=== PATIENT | female | born 1975 | race Caucasian/White ===

== ENCOUNTER 2024-09-24 13:23 | Outpatient (AMB) | payer OTHER, SELFPAY ==
[2024-09-24 13:34] VITALS: BMI 39.6
--- NOTE | 2024-09-24 13:34 | A.SPINEOV_ITS ---
Vital Signs 09/24/24 13:34 Height 5 ft 5 in Weight 238 lb BMI 39.6 Intake Visit Reasons: Neck pain Intake Note: Ms. Delgado is here today c/o neck pain. 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 Over the years, she noticed this following symptom progression: Neck pain, numbness and clumsiness in her hands and incidental loss of muscular control of arms or a spastic gait. She remembered after mountain biking, that she had loss of control of her arms and a wide-based gait that resolved. At night she sleeps in a certain position supported by pillows to avoid neck pain and/or numbness in her arms. She denies electric shocks down the spine. There is intermittent numbness of the bilateral hands during cycling. Her hands also may get into temporary spasms. Sometimes she has pain on the dorsum of the bilateral forearms, where the right side is more affected than the left side. She denies urge incontinence. She was evaluated by Dr. Lozano at [facility] who recommended a 3 level C3-C7 anterior diskectomy and fusion. She tried physical therapy and chiropractic therapy in the past. She constantly adjust her life to alleviate the symptoms. PMH: Multiple foot surgeries, Sonny's disease migraines Medications: Levothyroxine, liothyronine, meloxicam, progressed to wrong, dextroamphetamine Allergies: NKDA Social history: . Nonsmoker Physical Exam: Pleasant female. Normal gait. Reflex pattern shows bilateral Babinski's and a on beat ankle clonus bilaterally. On the right side the triceps reflex is higher than the biceps reflex. Flexion at the wrist produces numbness in her fingers. Tinel is negative. Radiological Studies: MRI done at [facility] on 09/03/2024 shows moderate cervical degenerative disc disease C4-5 C5-6 and C6-7 with cervical spinal stenosis. There still spinal fluid around the spinal cord with the exception at C6-7 where I would classify the compression as severe. The C6-7 level also shows bilateral C7 nerve root compression where the right side is more affected than the left side. Impression/Plan: This patient is suffering from slowly progressive cervical myelopathy. Clinical exam points towards the C6-7 area which is also the most severe at the MRI with spinal cord compression and bilateral C7 nerve root compression. In addition, I also think she is suffering from carpal tunnel syndrome. We had an extensive discussion about neurological observation versus surgery and what type of surgery. We could do serial neurological exams, however, I am leaning more towards doing an anterior diskectomy and fusion C6-7 due to the severity of the spinal cord compression and the slow progression of her symptoms. I do not think the other levels require surgery at this time. 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 She will think about our conversation and make a decision between surgery or serial reassessments. Finally, I did review the note of Dr. Lozano from to 12/07/2018 and he did not find a clonus or Babinski's, indicating that her neurological exam has worsened over the years. Thank you for allowing me to participate in your patients care. total time spent was 60 minutes in counseling ,coordination of plan, personal review of imaging, surgical decision making and subsequent plan Carlos Alberto Tijerina MD, PhD Spine Fellowship Trained Neurosurgeon Director, [facility] Coding Level of Care Code New Pt Level 5 (43506) Diagnoses Cervical disc disorder with myelopathy of cervical region M50.00 Bilateral carpal tunnel syndrome G56.03
--- OUTSIDE RECORDS SUMMARY | 2024-09-24 15:01 | XMS_ITS | Continuity of Care Document ---
[facility] Address [address] [place] [address]- Care Team Providers Care Technical Project Coordinator Name Role Phone Jessica Jones MD Primary Care Physician [phone] Encounter [facility] Date(s): 08/20/24 - 09[facility]19/[facility] [address] [place] [address]- Encounter Type: Triage Allergies, Adverse Reactions, Alerts Substance Criticality Severity Reaction Reaction Severity Status Augmentin VOMITING Active Medications Adderall 15 mg oral tablet 1 tablet = 15 mg, By Mouth, Daily in AM, 0 Refills, Maintenance, 08/25/24 2:02:00 PM EST, Partial fill upon patient request if the prescription is for a schedule II opioid drug. Start Date: 08/25/24 Status: Ordered Repeat number: 1 baclofen/flurbiprofen/lidocaine topical Topically, 3 times a day, 0 Refills, Maintenance, 08/05/19 12:17:00 PM EST Start Date: 08/05/19 Status: Ordered Repeat number: 1 Sandy 0.1 mg/24 hours twice weekly transdermal film, extended release See Instructions, apply to skin twice weekly per africana studies professor's insturctions x 90 days., # 24 patch, 1 Refills, Maintenance, 09/01/24 7:58:00 PM EST, [facility] - [id number], Partial fill upon patient request if the prescription is for a schedule II opioid drug., apply to skin twice weekly per africana studies professor's insturctions x 90 days., 162.56, cm, 08/25/24 14:04:00 EST, Height Start Date: 09/01/24 Status: Ordered Quantity: 24.0 Unit: patch Repeat number: 2 Knee Support Maintenance, left xxl trupull, 08/06/19 9:13:00 AM EST, Compound Start Date: 08/06/19 Status: Ordered Repeat number: 1 Levothyroxine = 125 mcg, Daily, 0 Refills, Maintenance, 06/01/12 11:46:18 AM EST Start Date: 06/01/12 Status: Ordered Repeat number: 1 liothyronine 5 mcg oral tablet 1 tablet = 5 mcg, By Mouth, Daily, 0 Refills, Maintenance, 08/14/20 2:58:00 PM EST, Partial fill upon patient request if the prescription is for a schedule II opioid drug. Start Date: 08/14/20 Status: Ordered Repeat number: 1 meloxicam 10 mg oral capsule 1 capsule = 10 mg, By Mouth, Daily, # 90 capsule, 0 Refills, Maintenance, 08/25/24 2:03:00 PM EST, Capsule, Partial fill upon patient request if the prescription is for a schedule II opioid drug. Start Date: 08/25/24 Status: Ordered Quantity: 90.0 Unit: capsule Repeat number: 1 Micronized Testosterone 4mg/gram cream Micronized Testosterone 4mg/gram cream, See Instructions, # 30 Gm, Refills 1, Tot. Refills 1, Maintenance, Apply to rotating sites on skin once daily. Start with 1mg a day and increase by 1mg a week until clinical relief noted. Max 4mg/day (1gram) x 30 days, 09/17/24 4:52:00 PM EST, chronic low testosterone, Supply, 162.56, cm, 08/25/24 14:04:00 EST, Height Start Date: 09/17/24 Status: Ordered Quantity: 30.0 Unit: g Repeat number: 2 [place]-3 oral capsule 0 Refills, Maintenance, 08/14/20 2:57:00 PM EST, Partial fill upon patient request if the prescription is for a schedule II opioid drug. Start Date: 08/14/20 Status: Ordered Repeat number: 1 Prometrium 200 mg oral capsule = 200 mg, By Mouth, Daily at bedtime, for 90 days, # 90 capsule, 1 Refills, Acute 02/28/25 7:59:00 PM EDT, 09/01/24 7:59:00 PM EST, Capsule, [facility] [id number], Partial fill upon patient request if the prescription is for a schedule II opioid drug., 162.56, cm, 08/25/24 14:04:00 EST, Height Start Date: 09/01/24 Stop Date: 02/28/25 Status: Ordered Quantity: 90.0 Unit: capsule Repeat number: 2 Vitamin D3 By Mouth, 0 Refills, Maintenance, 01/12/16 10:19:38 AM EDT Start Date: 01/12/16 Status: Ordered Repeat number: 1 Problem List Condition Confirmation Course Effective Dates Status Health St atus Informant Hypothyroidism Confirmed Active Migraine Confirmed Active Nulliparous Confirmed Active Social History Social History Type Response Smoking Status Never smoker entered on: 09/06/14 Sex Female Sex Representation Female (finding) Patient Care team information Care Team Personnel Name: Jessica Jones MD Position: [facility] Physician - Primary Care Member Role: PCP Address: [address] [place] [address] Telecom: Name: Carina Busby DO Position: [facility] RADIATION OFFICER Member Role: Lifetime RADIATION OFFICER Physician Address: [address] [place] [address] Telecom: Care Team Related Persons Name: TOR CARTWRIGHT Insurance Providers Guarantor name: ROSEMARY CARTWRIGHT Health Plan Information #: 1 Payer: [employer] H[employer] Member Number: NA Policy Number: NA Group Number: NA
--- OUTSIDE RECORDS SUMMARY | 2024-09-24 15:01 | XMS_ITS | Continuity of Care Document ---
[facility] Organization [facility] Address [address] [place] [address]- Care Team Providers Care Pit Laborer Name Role Phone Jessica Jones MD Primary Care Physician Encounter [facility] Date(s): 08/18/24 - 09/17/24 [facility] [address] [place] [address]- Encounter Type: Triage Allergies, Adverse Reactions, Alerts [...] Instructions, apply to skin twice weekly per energy derivatives trader's insturctions x 90 days., # 24 patch, 1 Refills, Maintenance, 09/01/24 7:58:00 PM EST, [facility] - [id number], Partial fill upon patient request if the prescription is for a schedule II opioid drug., apply to skin twice weekly per energy derivatives trader's insturctions x 90 days., 162.56, cm, 08/25/24 [...] Quantity: 30.0 Unit: g Repeat number: 2 [place]-3 oral capsule 0 Refills, Maintenance, 08/14/20 2:57:00 PM EST, Partial fill upon patient request if the prescription is for a schedule II opioid drug. Start Date: 08/14/20 Status: Ordered Repeat number: 1 Prometrium 200 mg oral capsule = 200 mg, By Mouth, Daily at bedtime, for 90 days, # 90 capsule, 1 Refills, Acute 02/28/25 7:59:00 PM EDT, 09/01/24 7:59:00 PM EST, Capsule, [facility] [address], Partial fill upon patient request if the [...] Team Personnel Name: Jessica Jones MD Position: [facility] Physician - Primary Care Member Role: PCP Address: [address] [place] [address] Telecom: Name: Carina Busby DO Position: [facility] PASSENGER BARGE MASTER Member Role: Lifetime PASSENGER BARGE MASTER Physician Address: [address] [place] [address] Telecom: Care Team Related Persons Name: TOR CARTWRIGHT Insurance Providers Guarantor name: ROSEMARY CARTWRIGHT Health Plan Information #: 1 Payer: [employer] Member Number: NA Policy Number: NA Group Number: NA
--- OUTSIDE RECORDS SUMMARY | 2024-09-24 15:02 | XMS_ITS | Continuity of Care Document ---
Author Organization [facility] ter Address [address] [place] [address]- Care Team Providers Care Meat Inspector Name Role Phone Jessica Jones MD Primary Care Physician [phone] Encounter 09/03/24 - 09/04/[address] [address] Attending Physician: Not on Staff, Attending MD Referring Physician: Not on Staff, Referring MD Encounter Type: [facility] Allergies, Adverse Reactions, Alerts Substance Criticality Severity [...] Instructions, apply to skin twice weekly per roll tester's insturctions x 90 days., # 24 patch, 1 Refills, Maintenance, 09/01/24 7:58:00 PM EST, [facility] - [id number], Partial fill upon patient request if the prescription is for a schedule II opioid drug., apply to skin twice weekly per roll tester's insturctions x 90 days., 162.56, cm, 08/25/24 [...] Quantity: 90.0 Unit: capsule Repeat number: 1 [place]-3 oral capsule 0 Refills, Maintenance, 08/14/20 2:57:00 PM EST, Partial fill upon patient request if the prescription is for a schedule II opioid drug. Start Date: 08/14/20 Status: Ordered Repeat number: 1 Prometrium 200 mg oral capsule = 200 mg, By Mouth, Daily at bedtime, for 90 days, # 90 capsule, 1 Refills, Acute 02/28/25 7:59:00 PM EDT, 09/01/24 7:59:00 PM EST, Capsule, [facility] [address], Partial fill upon patient request if the [...] Team Personnel Name: Jessica Jones MD Position: [facility] Physician - Primary Care Member Role: PCP Address: [address] [place] [address] Telecom: Name: Carina Busby DO Position: [facility] CHAINER MD Member Role: Lifetime CHAINER Physician Address: [address] [place] [address] Telecom: Care Team Related Persons Name: TOR CARTWRIGHT Insurance Providers Guarantor name: ROSEMARY CARTWRIGHT [employer] Plan Information #: 1 Payer: [facility] HMO Member Number: NA Policy Number: NA Group Number: NA
== END 2024-09-24 14:25 | disposition home or self-care (01) ==
PROVIDERS: PCP Family Medicine; Referring Provider Family Medicine; Visit Provider Neurological Surgery
DX: M50.00 Cervical disc disorder with myelopathy, unspecified cervical region (principal); G56.03 Carpal tunnel syndrome, bilateral upper limbs
CPT/HCPCS: 99205

== ENCOUNTER → 2024-09-24 13:23 | Outpatient (BNVA) | payer OTHER, SELFPAY | PROVIDERS: PCP Family Medicine; Referring Provider Family Medicine; Visit Provider Neurological Surgery ==

== ENCOUNTER 2024-11-24 12:59 | Outpatient (AMB) | payer OTHER, SELFPAY ==
--- NOTE | 2024-11-24 13:00 | HO.SPINEOV ---
Intake Visit Reasons: Discuss surgery Intake Note: Ms. Delgado is here today to discuss surgery. Residential Program Manager Required: No Allergies acetaminophen [From Vicodin] Allergy (Verified 11/24/24 13:02) Hypotension amoxicillin [From Augmentin] Allergy (Verified 11/24/24 13:02) Nausea clavulanic acid [From Augmentin] Allergy (Verified 11/24/24 13:02) Nausea hydrocodone [From Vicodin] Allergy (Verified 11/24/24 13:02) Hypotension Assessment & Plan Assessment & Plan (1) Cervical disc disorder with myelopathy of cervical region: Code(s): M50.00 - Cervical disc disorder with myelopathy, unspecified cervical region Category: Medical Plan Mrs Delgado came into the office today to review her anticipated procedure anterior cervical diskectomy and fusion C6-7. Her symptoms have been progressing fairly rapidly with the pain and numbness down the arms and the numbness in the hands. All pertinent risks and benefits were discussed as well as postoperative care. Pt was given risk and benefits of surgery including but not limited to infection, hematoma , nerve injury,durotomy, weakness,bowel/bladder injury, persistent pain, dysphagia as well as the option to continue with conservative treatment and patient wishes to proceed with surgery. If she still has numbness after the surgery, we can move ahead with a carpal tunnel release. Total amount of time spent in this visit was 20 minutes in discussion of symptoms, cervical imaging results and subsequent plan of care Isidro Tijerina MD,PhD [facility] Coding Level of Care Code Est Pt Level 3 (96025) Diagnoses Cervical disc disorder with myelopathy of cervical region M50.00
--- OUTSIDE RECORDS SUMMARY | 2024-11-24 14:09 | XMS_ITS | Continuity of Care Document ---
Author Organization [facility] Address [address] [place] [address] Phone Care Team Providers Care Botany Professor Name Role Phone Phoenix Harris MD Unavailable Unavailable Allergies, Adverse Reactions, Alerts Substance Reaction Status Criticality Penicillins Active No Information Medications Medication Instructions Dosage Effective Dates (start - stop) Status Comments Bactrim DS 800 mg-160 mg tablet take 1 tablet by oral route every 12 hours 1.00 tablet - Active Procedures Procedure Date UA auto w/o micro Level 4- New Office Advance Directives Directive Yes / No Effective Date File Name No Information Encounters Encounter Description Practice Location Reason(s) For Visit Diagnoses Date Provider Providers Copied on Encounter [facility], [address] [place], [place], [id number] , [place] tel:[phone] [facility] [place] No Information 0 Kimberly Garibay. [address] [place] [address], [address], [address], [place]. tel:[phone] [facility], [address] [place] [address], [id number] , [place] tel:[phone] [facility] Mixed incontinence 0 Taras Graham. [address] [facility], [address], [place], [address], [place]. tel:[phone] [facility], [address] [place] [address], [id number] , [place] tel:[phone] [place] Office 11 No Information 0 Taras Graham. [address] [facility] [place], [facility] [address], [place], [address], [place]. tel:[phone] Level 4- New Office [facility], [address] [facility] [place], [place], [id number] , [place] tel: [phone] [place] [facility] 4 Incontinence (chief complaint) Mixed incontinencePel darcy and perineal painUTI Sep- 0 Taras Graham. [address] [facility] [place], [address], [place], [address], [place]. tel:[phone] Referring Provider: Santos Mustafa, [address] [place] [address], [address]. tel:[phone] Family History Family Member Type Diagnosis Age At Onset Mother Problem (finding) Urolithiasis Mother Problem (finding) Alzheimer's disease Sister Problem (finding) ADD/ADHD Sister Problem (finding) Urolithiasis Mother Problem (finding) Urinary tract infection s Mother Problem (finding) Cardiovascular disease Mother Problem (finding) High cholesterol Sister Problem (finding) Urinary tract infection s Sister Problem (finding) Cancer, unknown Mother Problem (finding) Migraines Mother Problem (finding) Cancer, unknown Father Problem (finding) Cancer, unknown Father Problem (finding) Irritable bowel disease Payers Payer name Insurance type Covered democrat ID Authoriza tion(s) No Information Social History Type Description Quantity Date Captured Comments Alcohol Use Details Unknown Caffeine Use Details Unknown Tobacco Use Status No Information Smoking Status No Information Sex Female Chief Complaint And Reason For Visit No Information Reason For Referral Reason For Referral No Information History Of Present Illness Encounter Date Complaint History Of Prese nt Illness Incontinence The onset was gr adual. It occurs daily. Severity level is moderate. The patient reports pain in the pelvic area and vaginal area. The problem is worse. Causes of the leakage include coughing, sneezing and urgency. The patient denies receiving treatment. The patient does not report any of the following neurological symptoms: diabetes or vision changes. Associated symptoms include urinary frequency, nocturia and urgency. Pertinent negatives include constipation, dysuria, fever, hematuria and urinary hesitancy. Functional Status Date Functional Assessmen t No Information Instructions Date Instruction Additional Infor mation UA is abnormal today. UCx sent. Related to UTI C/o worsening mixed urinary incontinence. Urinates every 2 hours. Nocturia x 2. Has a strong urinary stream. Changes panty liners throughout the day. Has had 3 vaginal deliveries, done having babies. UDS/cysto/pelvic. Related to Mixed incontinence Also has some interm ittent pelvic pain, no dysuria associated with it. H/o endometriosis. Has terrible periods, tenter frame operator wants to do a hysterectomy. Also has decreased vaginal/clitoral sensation and getting more and more difficult to have an orgasm. Sees a tenter frame operator as well. Has been using estradiol cream x 2 months. Has some occasional lower back pain as well. See neurology. See Dr. Kim Related to Pelvic and perineal pain Assessments Type Assessment Date No Information Patient Care Teams Name Effective Dates (start - stop) Status Members No Information
== END 2024-11-24 13:47 | disposition home or self-care (01) ==
LOC: HO.HNS 12:59
PROVIDERS: PCP Family Medicine; Visit Provider Physician Assistant
DX: M50.00 Cervical disc disorder with myelopathy, unspecified cervical region (principal)
CPT/HCPCS: 99213

== ENCOUNTER → 2024-11-24 12:59 | Outpatient (BNVA) | payer OTHER, SELFPAY | PROVIDERS: PCP Family Medicine; Visit Provider Physician Assistant ==

== ENCOUNTER 2024-11-25 05:47 | Day surgery (SDC) | payer OTHER, SELFPAY ==
--- OUTSIDE RECORDS SUMMARY | 2024-11-10 10:01 | XMS_ITS | Clinical Summary ---
Author Organization [facility] [place] [address] Care Team Providers Care Head Esthetician Name Role Phone Jessica Jones MD Primary Care Provider [phone] Allergies No known active allergies Medications Medication Sig Dispensed Refills Start Date End Date Status buPROPion XL (Wellbutrin XL) 150 mg XL 24 hr tablet Take 300 mg by mouth daily. 01/24/2023 Active levothyroxine (Synthroid) 125 mcg tablet Take 125 mcg by mouth daily. 03/03/2023 Active liothyronine (Cytomel) 5 mcg tablet Take 5 mcg by mouth daily. *taking 5 mcg Friday - Friday , 10 mcg Friday and Friday* 03/03/2023 Active spironolactone (Aldactone) 50 mg tablet Take 50 mg by mouth daily. 03/04/2023 Active Social History Tobacco Use Types Packs/Day Years Used Date Smoking Tobacco: Never Smokeless Tobacco: Never Tobacco Cessation:Counseling Given: Not Answered Sex and Gender Information Value Date Recorded Sex Assigned at Not on file Gender Identity Not on file Sexual Orientation Not on file Last Filed Vital Signs Vital Sign Reading Time Taken Comments Blood Pressure - - Pulse - - Temperature - - Respiratory Rate - - Oxygen Saturation - - Inhaled Oxygen Concentration - - Weight 106.6 kg (235 lb) 03/19/2023 1:52 PM EDT Height 165.1 cm (5' 5 ) 03/19/2023 1:52 PM EDT Body Mass Index 39.11 03/19/2023 1:52 PM EDT Plan of Treatment Health Maintenance Due Date Last Done Comments CT Colonography 1977 Colonoscopy 1977 Colorectal Cancer Screening 1977 FIT DNA 1977 FIT 1977 Sigmoidoscopy (10 year) with FIT yearly 1977 Sigmoidoscopy 1977 HIV screen 1995 Hepatitis C Screening 1995 Lipid Screening 1995 Hepatitis B vaccine (0-59 yrs) and Risk (1) 1996 Tetanus/Diphtheria/Pertussis Vaccines (1 - Tdap) 08/30 HPV test 2007 PAP Smear 2007 Breast Cancer Share Decision Needed 2017 Breast Cancer screening 2017 Diabetes Screening (HgbA1C or Glucose) 2017 Covid-19 Vaccine ( season) 2024 Influenza (Flu) vaccine (1 o f 1 - Influenza standard series) 03/21/2024 Care Teams Head Esthetician Relationship Specialty Start Date End Date Jessica Jones MD [facility] [address] [place] [address] PCP - General Family Medicine 01/22/23
[2024-11-12 12:40] VITALS: BMI 39.9
[2024-11-25] VITALS (14 sets, daily range): BP systolic 114–132; BP diastolic 67–78; PULSE 69–80; RESP 14–20; TEMP 36.1–36.6; O2SAT 95–98; BMI 41.4
--- NOTE | ~2024-11-25 | FL_ITS ---
EXAMINATION: FL GUIDANCE ONLY HISTORY: c6-7 ACDF COMPARISON: None available. TECHNIQUE: Fluoroscopy time: 8 seconds. Cumulative Dose: 3.5514 mGy. DAP: 0.8315 mGym2 Images: 2. FINDINGS: AP and lateral fluoroscopic spot films of the cervical spine demonstrate anterior cervical disc fusion at C6-7. FL/FL guidance in OR IMPRESSION: Fluoroscopy during procedure. Please see procedure report for additional information. Electronically signed by: Victor Hugo Sanchez MD 11/25/2024 09:21 AM EDT
[2024-11-25] MEDS: Lactated Ringers 1,000 ML 100 ML IVCONT (06:32)
[2024-11-25] MEDS: methocarbamoL 750 MG TABLET PO (06:33)
[2024-11-25] MEDS: Gabapentin 300 MG CAPSULE PO (06:33)
[2024-11-25] MEDS: vancomycin HCL 1,500 MG in 0.9 % Sodium Chloride 500 ML 333.33 MG IV (06:35)
[2024-11-25 06:52] LABS: UPreg QC Valid YES; Urine Pregnancy NEGATIVE (NEGATIVE)
--- NOTE | 2024-11-25 07:04 | MHC.SHP ---
Pre-Procedural Eval Section A - 24 Hr Update-Section A only Date of Service: 11/25/24 The patient is an INPATIENT: No Changes since office visit: No Cold of Flu in the past 2 weeks, No New Medical Problems, No Changes in Medication and No Patient answered all questions The patient has been examined within 24 hours of the surgical procedure. The History & Physical has been completed within 30 days and I have reviewed it.: No Section B - Complete if H&P > 30 days Chief Complaint: Cervical disc disorder with myelopathy, Allergies: Allergies Allergy/AdvReac Type Severity Reaction Status Date / Time acetaminophen [From Vicodin] Allergy Hypotension Verified 11/24/24 13:02 amoxicillin [From Augmentin] Allergy Nausea Verified 11/24/24 13:02 clavulanic acid Allergy Nausea Verified 11/24/24 13:02 [From Augmentin] hydrocodone [From Vicodin] Allergy Hypotension Verified 11/24/24 13:02 Review of Systems Sugical H&P ROS: Negative: Constitution, Cardiovascular, Respiratory, Neurological, Psychiatric, Hem-Onc, Allergic/Immunologic, Gastrointestinal, Genitourinary, Musculoskeletal, Integumentary, Endocrine and Eyes/Ears/Nose/Throat Exam Surgical H&P Exam: Normal: HEENT, Normal: Heart, Normal: Lungs, Normal: Extremities, Normal: Abdomen, Normal: Skin and Normal: Neurological (Awake alert oriented x3) Plan Diagnosis/Plan: Unchanged C6-7 anterior cervical diskectomy and fusion Time Spent With Patient Time: Total time managing care of this patient today __ 5 __ minutes.
--- NOTE | 2024-11-25 07:04 | PM.DS ---
DS: Providers Provider Date of Service: 11/25/24 Date of discharge: 11/25/24 Primary care physician: Jessica Jones MD Admitting clinician: Carlos Alberto Tijerina DS: Diagnosis Discharge Diagnosis (1) Cervical disc disorder with myelopathy of cervical region: Status: Acute DS: Summary Time Attestation Discharge Coordination Time (in mins): 5 Quality: Safe Use of Opioids Does Pt have an Active Cancer Diagnosis on the Problem List?: No Quality: Stroke Does the patient have a stroke diagnosis?: No Physical Exam Vital Signs: Vital Signs: Last Vital Signs Temp 97.3 F 11/25/24 06:18 Pulse 79 11/25/24 06:18 Resp 16 11/25/24 06:18 BP 132/78 11/25/24 06:18 Pulse Ox 98 11/25/24 06:18 O2 Del Method Room Air 11/25/24 06:18 BMI result Body Mass Index 41.4 DS: Data Data Completed and Pending Labs on day of discharge: Laboratory Results - last 24 hr 11/25/24 06:05 Urine Test NEGATIVE Discharge Plan Discharge Patient Disposition: Home, Self-Care Referrals: Jessica Jones MD [Primary Care Provider] - 1 Week Discharge Medications: New tramadol 50 mg tablet 50 mg PO Q6H PRN (Reason: pain) Qty: 30 0RF docusate sodium [Colace] 100 mg capsule 100 mg PO BID Qty: 20 0RF Continued meloxicam 15 mg tablet 15 mg PO DAILY dextroamphetamine-amphetamine 10 mg tablet 1.5 tab PO DAILY estradiol [Sandy] 0.1 mg/24 hr patch semiweekly 1 patch transdermal 2XW liothyronine 5 mcg tablet 5 mcg PO DAILY jcszidpsww-tdwqlvhxtepru-irhu 50-325-40 mg tablet 1 tab PO Q4-5H PRN (Reason: Headache) levothyroxine 125 mcg tablet 125 mcg PO DAILY progesterone micronized 100 mg capsule 200 mg PO BEDTIME tizanidine 4 mg tablet 4 mg PO Q OTHER DAY PRN (Reason: Muscle Spasm) gabapentin 100 mg capsule 200 mg PO BEDTIME testosterone Discharge Orders: Discharge Order (Routine); Ordered 11/25/24 Ordered By: Isidro Hogan Diet: Advance to usual diet Activity on Discharge: As tolerated Activity Restrictions/Additional Instructions: After your spinal surgery we ask you to observe the following restrictions/guidelines: Activity: It is normal to feel some discomfort as you increase your activity, but that will improve with time. We ask you avoid heavy lifting or acitivities that cause pain. As a general rule, 8lbs is a safe limit for lifting right after surgery. Walk as much as you feel comfortable but not to exhaustion. You will feel extra tired the first few days after surgery. Stay well hydrated. It is OK to walk up and down stairs You may return to driving when you are off narcotics (such as vicodin, oxycodone, dilaudid, etc), and you are back to normal functional capacity. If you have any concerns please check with office before driving. Return to work is specific to each patient and each surgery, so please speak with your doctor/PA at first follow up. Please bring paperwork such as FMLA at that time if you need it filled out. Medications: For optimum pain control, it is best to start with a combination of 500 mg of Tylenol every 4 hours with 600 mg of Motrin every 8 hours, and use narcotics as needed in between for breakthrough pain. We will give you a short supply of narcotics after surgery (usually one weeks worth). If you need more please call the office but do not use more than prescribed. You will need to give our office 48 hours notice if you need narcotics refilled and we do not fill narcotics on weekends or evenings. If you are on a narcotic, it is a good idea to take a stool softener such as colace or senna to avoid constipation If you take blood thinner such as aspirin, Plavix, Coumadin, Effient, Eliquis etc for conditions such as Afib, DVT, Pulmonary embolus, coronary disease, stents etc please speak with your surgeon about specific details as to when you can resume these medications. You can resume NSAIDs on post op day 1 (eg: Motrin, Naproxen, etc). Follow up: Please call the office, , after surgery to arrange a 3 week follow up for wound check. Wound Care: You may remove your dressing on the first day after surgery. ?You may ?leave open to air. Please do not remove the steri strips underneath. they will fall off on their own in one week. IT IS NORMAL FOR THE WOUND TO OOZE OR BE BLOODY FOR A FEW DAYS AFTER SURGERY. ?IF THIS HAPPENS JUST PLACE NEW DRESSING OVER IT TO AVOID STAINING CLOTHES. You may shower on post op day # 1 We ask that you do not let the water soak the wound. If it does get wet, just towel dry lightly. Please do not scrub your incision or place any type of chemical/ointment on the wound. No tub baths, pools or jacuzzis for one month. If you have any leaking or redness from your wound, or fevers, please call office Print Language: Latvian
--- NOTE | 2024-11-25 07:20 | HO.ANESPROP2 ---
Documented by User: Michelle Lopez NP 11/24/24 09:49 HPI - Anesthesia Eval Consult details Narrative: 49yo F for C6-7 Ant Cerv Discectomy w/ fusion BMI 39.9 PMFSH Active Problems Active Problems: All Active Problems Bilateral carpal tunnel syndrome (Acute) Cervical disc disorder with myelopathy of cervical region (Acute) Past Medical History Medical History (Updated 11/12/24 @ 12:17 by Cayla Braden RN) Back pain Arthritis Depression Habitual snoring Migraines Female infertility Cervical radiculopathy Thyroid disease Hirsutism Vitamin D deficiency Polycystic ovary syndrome ADHD (attention deficit hyperactivity disorder), inattentive type Female hirsutism Surgical History Surgical History (Updated 11/25/24 @ 06:15 by Adeline Edwards RN) History of surgery History of surgery of uterus S/P bilateral foot surgery S/P ACL repair Social History Social History Are you a primary progressive care nurse to a significant other at home: No Do you presently have visiting nurse or other home services: No Patient Tobacco Use Status: Never used Tobacco Use of substances other than those prescribed or required for medical reasons: No Have you been hit, kicked, punched, or otherwise hurt by someone within the past year? If so, by whom?: No Are you DNR?: No Advance Directives: No Advance Directives Information Provided: Yes Advance Directives on File: No Patient : No : No Poor oral hygiene: No Meds Allergies Allergy/AdvReac Type Severity Reaction Status Date / Time acetaminophen [From Vicodin] Allergy Hypotension Verified 11/24/24 13:02 amoxicillin [From Augmentin] Allergy Nausea Verified 11/24/24 13:02 clavulanic acid Allergy Nausea Verified 11/24/24 13:02 [From Augmentin] hydrocodone [From Vicodin] Allergy Hypotension Verified 11/24/24 13:02 Home Medications ?Medication ?Instructions ?Recorded ?Confirmed ?Last Taken ?Type vuceqigcsx-zcprvhqhgizrh-hftiqlfi 1 tab PO Q4-5H PRN Headache 11/11/24 11/11/24 Unknown History 50 mg-325 mg-40 mg tablet dextroamphetamine-amphetamine 10 1.5 tab PO DAILY 11/11/24 11/12/24 Unknown History mg tablet estradiol 0.1 mg/24 hr semiweekly 1 patch transdermal 2XW 11/11/24 11/12/24 Unknown History transdermal patch (Sandy) levothyroxine 125 mcg tablet 125 mcg PO DAILY 11/11/24 11/12/24 Unknown History liothyronine 5 mcg tablet 5 mcg PO DAILY 11/11/24 11/12/24 Unknown History meloxicam 15 mg tablet 15 mg PO DAILY 11/11/24 11/12/24 11/17/24 History progesterone micronized 100 mg 200 mg PO BEDTIME 11/11/24 11/12/24 Unknown History capsule gabapentin 100 mg capsule 200 mg PO BEDTIME 11/12/24 11/12/24 Unknown History testosterone 11/12/24 Unknown History tizanidine 4 mg tablet 4 mg PO Q OTHER DAY PRN Muscle 11/12/24 11/12/24 Unknown History Spasm Exam Height,Weight and Vital Signs: Height 5 ft 5 in Weight 108.862 kg Pertinent Lab Results Pertinent Lab Results: CMP and CBC 2023 from outside lab [place] Assessment and Plan Assessment Anesthesia Assessment: Chart Reviewed Documented by User: Katlyn Melvin DO 11/25/24 07:47 HPI - Anesthesia Eval Consult details Narrative: 49yo F for C6-7 Ant Cerv Discectomy w/ fusion PMFSH Past Medical History Medical History (Updated 11/12/24 @ 12:17 by Cayla Braden RN) Back pain Arthritis Depression Habitual snoring Migraines Female infertility Cervical radiculopathy Thyroid disease Hirsutism Vitamin D deficiency Polycystic ovary syndrome ADHD (attention deficit hyperactivity disorder), inattentive type Female hirsutism Family History Family history of problems with anesthesia: No Surgical History Surgical History (Updated 11/25/24 @ 06:15 by Adeline Edwards RN) History of surgery History of surgery of uterus S/P bilateral foot surgery S/P ACL repair History of Problems with Anesthesia: No Social History Social History Are you a primary progressive care nurse to a significant other at home: No Do you presently have visiting nurse or other home services: No Patient Tobacco Use Status: Never used Tobacco Use of substances other than those prescribed or required for medical reasons: No Have you been hit, kicked, punched, or otherwise hurt by someone within the past year? If so, by whom?: No Are you DNR?: No Advance Directives: No Advance Directives Information Provided: Yes Advance Directives on File: No Patient : No : No Poor oral hygiene: No Meds Allergies Allergy/AdvReac Type Severity Reaction Status Date / Time acetaminophen [From Vicodin] Allergy Hypotension Verified 11/24/24 13:02 amoxicillin [From Augmentin] Allergy Nausea Verified 11/24/24 13:02 clavulanic acid Allergy Nausea Verified 11/24/24 13:02 [From Augmentin] hydrocodone [From Vicodin] Allergy Hypotension Verified 11/24/24 13:02 Home Medications ?Medication ?Instructions ?Recorded ?Confirmed ?Last Taken ?Type gegngorqri-ipwotexvadxwa-xtdpybum 1 tab PO Q4-5H PRN Headache 11/11/24 11/11/24 Unknown History 50 mg-325 mg-40 mg tablet dextroamphetamine-amphetamine 10 1.5 tab PO DAILY 11/11/24 11/12/24 Unknown History mg tablet estradiol 0.1 mg/24 hr semiweekly 1 patch transdermal 2XW 11/11/24 11/12/24 Unknown History transdermal patch (Sandy) levothyroxine 125 mcg tablet 125 mcg PO DAILY 11/11/24 11/12/24 Unknown History liothyronine 5 mcg tablet 5 mcg PO DAILY 11/11/24 11/12/24 Unknown History meloxicam 15 mg tablet 15 mg PO DAILY 11/11/24 11/12/24 11/17/24 History progesterone micronized 100 mg 200 mg PO BEDTIME 11/11/24 11/12/24 Unknown History capsule gabapentin 100 mg capsule 200 mg PO BEDTIME 11/12/24 11/12/24 Unknown History testosterone 11/12/24 Unknown History tizanidine 4 mg tablet 4 mg PO Q OTHER DAY PRN Muscle 11/12/24 11/12/24 Unknown History Spasm Exam Exam Date and Time: 11/25/24 0720 Height,Weight and Vital Signs: Height 5 ft 5 in Weight 108.862 kg Vital Signs Temperature 97.3 F 11/25/24 06:18 Pulse Rate 79 11/25/24 06:18 Respiratory Rate 16 11/25/24 06:18 Blood Pressure 132/78 11/25/24 06:18 Pulse Oximetry 98 11/25/24 06:18 Oxygen Delivery Method Room Air 11/25/24 06:18 Temperature 97.3 F 11/25/24 06:18 Pulse Rate 79 11/25/24 06:18 Respiratory Rate 16 11/25/24 06:18 Blood Pressure 132/78 11/25/24 06:18 Pulse Oximetry 98 11/25/24 06:18 Oxygen Delivery Method Room Air 11/25/24 06:18 Airway Mallampati Class: II TM Dist: >3cm Neck ROM: Limited Loose/Missing/Broken Teeth: No (patient denies any loose or broken teeth) Heart: S1S2 Lungs: CTAB Assessment and Plan Assessment Anesthesia Assessment: Anesthesia Plan Discussed and Chart Reviewed Final Anesthetic Review Family History of Problems with Anesthesia: No History of Problems with Anesthesia: No NPO: Yes ASA Class: II Final Preanesthetic Review: No Changes in Pt Med Stat, Meds/Allgs Chart Reviewed, Consent Obtained/Reviewed and Anes Risks/Benef Reviewed Patient Risk: Low Procedure Risk: Intermediate Anesthetic Plan Anesthetic Plan: GA and Agree w/ Assess. and Plan Disposition: Standard PACU
--- NOTE | 2024-11-25 07:20 | PC.NURSE ---
patient started to itch on her scalp and ears. stopped vancomycin. md flowers by bedside evaluating patient. no sob or resp distress.
[2024-11-25] MEDS: ceFAZolin Sodium/Dextrose,Iso 2 GM/50 ML PIGGYBACK IV (07:35)
--- NOTE | 2024-11-25 09:17 | P.OP_ITS ---
Operative Note Operative Note Date of Service: 11/25/24 Narrative: Preoperative Diagnosis: Cervical myelo radiculopathy Procedure: C6-7 Anterior discectomy, arthrodesis and implantation cage ; C6-7 anterior instrumentation ; local autograft; microscope Informed Consent was obtained for this operation. I have explained the nature, purpose and benefits of the operation. I have discussed the risks and benefit of the operation including possible complications or adverse events with pat ient/family. Alternative(s) were discussed with the patient with their relative benefits and risks as well as the consequences of not accepting the operation were included in obtaining consent. Surgeon: NICK RUFF MD, PHD Procedure Assisted By: telma Morgan Description of Procedure: This patient is suffering from signs of cervical myelopathy and cervical radiculopathy. An MRI shows multilevel degenerative disc disease. She was offered an anterior diskectomy and fusion C6-7 based on her clinical symptoms. The procedure complications were explained. The patient was consented. The patient was brought to the operating room and endotracheally intubated. The patient was put in supine position with slight extension of the neck. Prep and drape was done followed by timeout. A mid cervical incision was made followed by opening of the platysma. A venous bleeding occurred which was coagulated. The prevertebral fascia was reached following the natural planes while the physician property assistant provided manual retraction. The prevertebral fascia was opened to expose the disc space. A spinal needle was placed in the disk space to confirm the correct level with xray. The longus colli muscles were released bilaterally and a self retaining retractor was inserted. Two [place] pins were placed in the C6-7 vertebral bodies and distraction was give over the interspace. The discecto my was completed toward the posterior annulus of the disc. The microscope was brought in. The remainder of the discectomy was completed. The posterior ligament was opened and resected to expose the underlying dura. Osteophytes were resected from the body of C6-7 to decompress the spinal cord and saved for autograft. Bilateral foraminotomies were done. Significant spinal stenosis and foraminal stenosis was encountered and relieved. The endplates were prepared after which a 6 mm cage filled with autograft was inserted into the disc space. A separate attached plate was locked down with 2 x 14 mm screws as anterior instrumentation. Final x-rays in AP and lateral projection showed a satisfactory position of the implant. The physician property assistant took over. The [place] pin was removed. Hemostasis was done. He closed the incision in 2 layers with a 3-0 Vicryl. Steri-Strips used to approximate incision. An OpSite with Tegaderm was used to cover the incision. All sponge and needle counts were correct. Patient was extubated and transported in stable is to recovery room. Anesthesia: General Estimated Blood Loss (ml): 30 mL Duration of Surgery: 1 hour and 15 minutes Postoperative Plan: Discharge home Complications: None
[2024-11-25] MEDS: Haloperidol Lactate 5 MG/ML VIAL 1 MG IVPUSH (09:33)
[2024-11-25] MEDS: Ondansetron ODT 4 MG TAB.RAPDIS TRANSLINGU (12:09)
== END 2024-11-25 12:41 | disposition home or self-care (01) ==
PROVIDERS: Nurse Practitioner; PCP Family Medicine; Visit Provider Neurological Surgery
PROC: (CPT 22551; principal; 2024-11-25 07:30)
DX: M50.023 Cervical disc disorder at C6-C7 level with myelopathy (principal); G56.03 Carpal tunnel syndrome, bilateral upper limbs; R20.0 Anesthesia of skin; E06.3 Autoimmune thyroiditis; G43.909 Migraine, unspecified, not intractable, without status migrainosus; E55.9 Vitamin D deficiency, unspecified; L68.0 Hirsutism; Z79.899 Other long term (current) drug therapy; Z88.1 Allergy status to other antibiotic agents; Z88.5 Allergy status to narcotic agent; Z98.890 Other specified postprocedural states; M48.02 Spinal stenosis, cervical region
CPT/HCPCS: 22551; 22853; 22845; 20936; 81025; C1713; J0690; J1100; J1630; J2003; J2250; J2405; J2704; J3010; J3371

== ENCOUNTER → 2024-11-25 05:47 | Outpatient (BNV) | payer OTHER, SELFPAY | PROVIDERS: PCP Family Medicine; Visit Provider Neurological Surgery | DX: M50.023 Cervical disc disorder at C6-C7 level with myelopathy (principal) | CPT/HCPCS: 20936; 22551; 22845; 22853; 99499 ==

== ENCOUNTER 2024-12-16 14:47 | Outpatient (REF) | payer OTHER, SELFPAY | END 2024-12-16 14:48 | disposition home or self-care (01) | LOC: HO.HOSX 14:47 | PROVIDERS: PCP Family Medicine; Visit Provider Physician Assistant | DX: Z13.89 Encounter for screening for other disorder (principal) ==

== ENCOUNTER 2024-12-16 14:47 | Outpatient (AMB) | payer OTHER, SELFPAY ==
--- NOTE | 2024-12-16 14:56 | HO.SPINEOV ---
Intake Visit Reasons: 1st post op Intake Note: Ms. Delgado is here today for her 1st post op. Gear Tester Required: No Allergies acetaminophen [From Vicodin] Allergy (Verified 11/24/24 13:02) Hypotension amoxicillin [From Augmentin] Allergy (Verified 11/24/24 13:02) Nausea clavulanic acid [From Augmentin] Allergy (Verified 11/24/24 13:02) Nausea hydrocodone [From Vicodin] Allergy (Verified 11/24/24 13:02) Hypotension Assessment & Plan Assessment & Plan (1) Cervical disc disorder with myelopathy of cervical region: Code(s): M50.00 - Cervical disc disorder with myelopathy, unspecified cervical region Category: Medical Plan Mrs Delgado is 3 weeks out from her ACDF C6-7. The arm pain and tingling that she had is significantly better if not gone. She has been recovering well. She had some mild neck discomfort but that seems to be going away as well. She is back to work. Her wound is healed up nicely. We discussed activity guidelines, restrictions and expectations after anterior cervical fusion. I told her she could get back to doing her short by commute to work every day, but to avoid the mountain biking where she may have to have a lot of strain on her arms and her neck. I will see her back in 6 weeks for final postoperative visit with x-rays. Isidro Tijerina MD, PhD [facility] Orders: Orders XR cervical spine 4V Today M50.00 - Cervical disc disorder with myelopathy, unspecified cervical region Coding Level of Care Code Global (05560) Diagnoses Cervical disc disorder with myelopathy of cervical region M50.00
== END 2024-12-16 15:18 | disposition home or self-care (01) ==
LOC: HO.HNS 14:47
PROVIDERS: PCP Family Medicine; Visit Provider Physician Assistant
DX: M50.00 Cervical disc disorder with myelopathy, unspecified cervical region (principal)
CPT/HCPCS: 99024

== ENCOUNTER 2025-01-07 11:39 | Outpatient (AMB) | payer OTHER, SELFPAY ==
--- NOTE | 2025-01-07 12:01 | A.SPINEOV_ITS ---
Intake Visit Reasons: 2nd post op w/ Xrays Intake Note: Ms. Delgado is here today for her 2nd post op with xrays Cafeteria Or Lunchroom Checker Required: No Allergies acetaminophen (From Vicodin) Allergy (Verified 11/24/24 13:02) Hypotension amoxicillin (From Augmentin) Allergy (Verified 11/24/24 13:02) Nausea clavulanic acid (From Augmentin) Allergy (Verified 11/24/24 13:02) Nausea hydrocodone (From Vicodin) Allergy (Verified 11/24/24 13:02) Hypotension Assessment & Plan Assessment & Plan (1) Cervical disc disorder with myelopathy of cervical region: Code(s): M50.00 - Cervical disc disorder with myelopathy, unspecified cervical region Category: Medical (2) Bilateral carpal tunnel syndrome: Code(s): G56.03 - Carpal tunnel syndrome, bilateral upper limbs Category: Medical Plan Mrs Delgado is 6 weeks out from her ACDF C6-7. Her arm pain is gone. She is otherwise doing okay and started to resume most of her activities. 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 She does report numbness of both of her hands. Previous diagnosis of carpal tunnel on EMG and on today's examination she does have positive Phalen's sign in both hands. Her x-rays look great, there is already signs of fusion taking place. At this point she does not have any specific restrictions. She can resume activities as tolerated. I told her if she is ready to have carpal tunnel surgery at any point to give us a call and we would be happy to facilitate. We did briefly discuss with that procedure entails and the recovery period Isidro Tijerina MD, PhD [facility] Coding Level of Care Code Global (93717) Diagnoses Cervical disc disorder with myelopathy of cervical region M50.00 Bilateral carpal tunnel syndrome G56.03
== END 2025-01-07 12:21 | disposition home or self-care (01) ==
LOC: HO.HNS 11:39
PROVIDERS: PCP Family Medicine; Visit Provider Physician Assistant
DX: M50.00 Cervical disc disorder with myelopathy, unspecified cervical region (principal); G56.03 Carpal tunnel syndrome, bilateral upper limbs
CPT/HCPCS: 99024

== ENCOUNTER 2025-01-07 11:39 | Outpatient (REF) | payer OTHER, SELFPAY ==
--- NOTE | ~2025-01-07 | XR_ITS ---
CLINICAL HISTORY: M50.00 - Cervical disc disorder with myelopathy, unspecified cervical re... --- Additional Notes or Special Instructions: a p, lateral with flex ext views 5 views cervical spine Comparison: None provided Findings: Normal vertebral body alignment. No acute fractures or dislocation. There is moderate degenerative change with disc space narrowing and marginal osteophyte formation throughout the cervical spine. The anterior fusion hardware at C6-C7 appears intact. Facet joints are normally imbricating. Prevertebral soft tissues within normal limits. No hypermobility with flexion or extension. IMPRESSION: No acute findings. Postsurgical and degenerative changes as detailed. This document has been electronically signed by: Alvarado Zafar MD on 01/07/2025 16:22:08
== END 2025-01-07 11:40 | disposition home or self-care (01) ==
LOC: HO.HOSX 11:39
PROVIDERS: PCP Family Medicine; Visit Provider Physician Assistant
DX: M50.023 Cervical disc disorder at C6-C7 level with myelopathy (principal); G56.03 Carpal tunnel syndrome, bilateral upper limbs
CPT/HCPCS: 72050

== ENCOUNTER → 2025-01-07 11:42 | Outpatient (BNV) | payer OTHER, SELFPAY | PROVIDERS: PCP Family Medicine; Visit Provider Radiology Vascular & Interventional Radiology | DX: M50.30 Other cervical disc degeneration, unspecified cervical region (principal) | CPT/HCPCS: 72050 ==